=== PATIENT | female | born 1975 | race Caucasian/White ===

== ENCOUNTER 2017-01-10 09:53 | Emergency (ER) | payer BC ==
[~2017-01-10] VITALS: Ht 170.2 cm; Wt 81.6 kg
--- NOTE | 2017-01-10 10:05 | NUR ---
Pt being evaluated by Dr. Benedict on [facility].
[2017-01-10 10:08] VITALS: BP 189/100
[2017-01-10] MEDS ORDERED: KETOROLAC 60 MG/2 ML VIAL IM ONE (10:10)
[2017-01-10] MEDS ORDERED: TENORMIN50 M1 PO (10:12)
--- NOTE | 2017-01-10 10:16 | NUR ---
Pt placed in bed 6 by EMS.
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
--- NOTE | 2017-01-10 11:10 | NUR ---
Note undone in EDM - 01/10/17 at 1123 by [email or web address] Patient discharged with BP 181/108 ;HX OF HTN ;C/O A LITTLE BIT HEADACHE ;NOTIFIED ER MD DR TO ; AWARE Written and verbal after care instructions given and explained. Patient alert, oriented and verbalized understanding of instructions. Ambulatory with steady gait. All questions addressed prior to discharge. ID band removed. Patient advised to follow up with PMD. Rx of FLEXERIL & MOTRIN given. Patient educated on indication of medication including possible reaction and side effects. Opportunity to ask questions provided and answered.
[2017-01-10 11:15] VITALS: BP 181/103
--- NOTE | 2017-01-10 11:15 | NUR ---
Patient discharged with BP 181/103 ;HX OF HTN ;C/O A LITTLE BIT HEADACHE ;NOTIFIED ER MD DR TO ; AWARE Written and verbal after care instructions given and explained. Patient alert, oriented and verbalized understanding of instructions. Ambulatory with steady gait. All questions addressed prior to discharge. ID band removed. Patient advised to follow up with PMD. Rx of FLEXERIL & MOTRIN given. Patient educated on indication of medication including possible reaction and side effects. Opportunity to ask questions provided and answered.
== END 2017-01-10 11:15 | disposition home or self-care (01) ==
LOC: MED 09:53
DX: S16.1XXA Strain of muscle, fascia and tendon at neck level, initial encounter (principal); I10 Essential (primary) hypertension; V49.69XA Unspecified car occupant injured in collision with other motor vehicles in traffic accident, initial encounter; Y93.I9 Activity, other involving external motion; Y92.488 Other paved roadways as the place of occurrence of the external cause; Y99.8 Other external cause status
CPT/HCPCS: 72040; 96372; 99284; J1885